=== PATIENT | male | born 1960 | race Caucasian/White ===

== ENCOUNTER → 2017-09-16 14:05 | Outpatient (CLI) | payer OTHER, SELFPAY ==
[2017-09-16 16:12] LABS: Hemoglobin A1c 6.4 % (4.2-6.3)
[2017-09-16 16:17] LABS: ALB/GLOB Ratio 1.2 RATIO (0.9-2.4); Albumin, Serum 4.1 g/dL (3.2-5.0); BUN 13 mg/dL (7-18); Calcium,Total 8.3 mg/dL (8.5-10.1); Creatinine, Serum 0.65 mg/dL (0.70-1.30); EST Glomerular Filtration Rate 136 mL/min (>60); Est Glom Filt Rate - Afr Amer 164 mL/min (>60); Globulin 3.3 g/dL (2.2-4.2); Glucose 106 mg/dL (70-110); Protein, Total 7.4 g/dL (6.4-8.2)
[2017-09-16 16:18] LABS: AST(SGOT) 19 U/L (15-37); Alanine Aminotransfer ALT/SGPT 41 U/L (16-61); Alkaline Phosphatase 102 U/L (45-117); Anion Gap 8 (5-15); Chloride 101 mmol/L (98-107); Cholesterol 129 mg/dL (200); High Density Lipoprotein 36 mg/dL; Sodium Level 137 mmol/L (136-145); Thyroid Stim Hormone (TSH) 0.88 uIU/mL (0.358-3.74); Triglycerides 123 mg/dL; Very Low Density Lipoprotein 25 mg/dL (5-40)
[2017-09-16 16:22] LABS: Microalbumin,Random Urine 5.5 mg/L (NO RANGE EST.); Microalbumin:Creatinine Ratio 7.4 mg/g CRE (<30 mg/g CRE)
== END ==
PROVIDERS: Visit Provider Family Medicine
DX: E11.9 Type 2 diabetes mellitus without complications (principal); E78.5 Hyperlipidemia, unspecified
CPT/HCPCS: 36415; 80053; 80061; 82043; 82570; 83036; 84443

== ENCOUNTER → 2020-03-16 10:18 | Outpatient (CLI) | payer OTHER, SELFPAY ==
[2020-03-16 10:42] LABS: Absolute Lymphocyte Count 1.57 X10^3/uL (0.83-4.51); Absolute Neutrophil Count 4.9 X10^3/uL (2.0-7.7); Basophil# 0.07 X10^3/uL; Eosinophil# 0.12 X10^3/uL; Eosinophils% 1.7 % (0-5); Hematocrit 48.1 % (40-54); Hemoglobin 16.3 g/dL (13.0-16.5); Lymphocyte # 1.57 X10^3/ul (4.0); Lymphocyte % 22.1 % (19-41); Mean Corp Hgb Conc 33.9 g/dL (32-36); Mean Corpuscular Hgb 29.3 pg (27.0-32.0); Mean Corpuscular Volume 86.4 fL (80-94); Monocyte# 0.42 X10^3/uL; Monocyte% 5.9 % (0-10); NRBC Flagged by Analyzer 0 % (0-5); Neutrophil # 4.88 X10^3/uL (2.7-7.7); Neutrophil % 68.9 % (47-70); Platelet Count 207 K/mm3 (150-450); RBC Distribution Width CV 13.5 % (11.6-14.6); RBC Distribution Width SD 41.9 fl (35.1-43.9); Red Blood Count 5.57 M/mm3 (4.6-6.2); White Blood Count 7.1 K/mm3 (4.4-11.0)
[2020-03-16 11:20] LABS: ALB/GLOB Ratio 1.2 RATIO (0.9-2.4); AST(SGOT) 29 U/L (15-37); Alanine Aminotransfer ALT/SGPT 52 U/L (16-61); Albumin, Serum 4.3 g/dL (3.2-5.0); Alkaline Phosphatase 98 U/L (45-117); Anion Gap 2 (5-15); BUN 15 mg/dL (7-18); BUN/Creat Ratio 19.2 RATIO (10-20); Calcium,Total 9.1 mg/dL (8.5-10.1); Chloride 107 mmol/L (98-107); Cholesterol 142 mg/dL (200); Creatinine, Serum 0.78 mg/dL (0.70-1.30); EST Glomerular Filtration Rate 108 mL/min (>60); Est Glom Filt Rate - Afr Amer 131 mL/min (>60); Globulin 3.5 g/dL (2.2-4.2); Glucose 127 mg/dL (74-106); High Density Lipoprotein 43 mg/dL; Potassium 3.9 mmol/L (3.5-5.1); Protein, Total 7.8 g/dL (6.4-8.2); Sodium Level 138 mmol/L (136-145); Triglycerides 69 mg/dL; Very Low Density Lipoprotein 14 mg/dL (5-40)
== END ==
PROVIDERS: Referring Provider Family Medicine; Visit Provider Family Medicine
DX: E11.9 Type 2 diabetes mellitus without complications (principal); M25.549 Pain in joints of unspecified hand
CPT/HCPCS: 36415; 80053; 80061; 83036; 85025

== ENCOUNTER → 2022-01-14 | Outpatient (CLI) | payer OTHER, SELFPAY ==
[2022-01-14 09:02] LABS: ALB/GLOB Ratio 1.2 RATIO (0.9-2.4); AST(SGOT) 26 U/L (15-37); Alanine Aminotransfer ALT/SGPT 56 U/L (16-61); Albumin, Serum 3.8 g/dL (3.2-5.0); Alkaline Phosphatase 107 U/L (45-117); Anion Gap 6 (5-15); BUN 15 mg/dL (7-18); Calcium,Total 8.7 mg/dL (8.5-10.1); Chloride 100 mmol/L (98-107); Cholesterol 148 mg/dL (200); Creatinine, Serum 0.79 mg/dL (0.70-1.30); EST Glomerular Filtration Rate 107 mL/min (>60); Est Glom Filt Rate - Afr Amer 129 mL/min (>60); Globulin 3.3 g/dL (2.2-4.2); Glucose 297 mg/dL (74-106); High Density Lipoprotein 42 mg/dL; Potassium 3.7 mmol/L (3.5-5.1); Protein, Total 7.1 g/dL (6.4-8.2); Sodium Level 135 mmol/L (136-145); Thyroid Stim Hormone (TSH) 0.73 uIU/mL (0.358-3.74); Triglycerides 173 mg/dL; Very Low Density Lipoprotein 35 mg/dL (5-40)
[2022-01-14 10:02] LABS: Microalbumin,Random Urine 26.4 mg/L (NO RANGE EST.); Microalbumin:Creatinine Ratio 23.6 mg/g CRE (<30 mg/g CRE)
[2022-01-14 11:08] LABS: Hemoglobin A1c 9.8 % (3.8-5.6)
[2022-01-18 08:38] LABS: Testosterone, % Free 3.85 % (1.50-4.20); Testosterone, Total 252 ng/dL (264-916)
== END | disposition home or self-care (01) ==
LOC: LAB 07:49
PROVIDERS: PCP Family Medicine; Visit Provider Family Medicine
DX: E11.9 Type 2 diabetes mellitus without complications (principal); R37 Sexual dysfunction, unspecified; I10 Essential (primary) hypertension; Z12.5 Encounter for screening for malignant neoplasm of prostate
CPT/HCPCS: 36415; 80053; 80061; 82043; 82570; 83036; 84153; 84402; 84403; 84443; G0103

== ENCOUNTER 2022-08-21 11:29 | Day surgery (SDC) | payer OTHER, SELFPAY ==
[2022-08-21 11:53] VITALS: BP 137/84; PULSE 91; RESP 16; TEMP 36.4; O2SAT 100; BMI 30.4
--- NOTE | 2022-08-21 12:02 | HP.PCM_ITS ---
History and Physical Date of Admission: 08/21/22 Date of Service:? 07/24/22 MR#: [id number] Acct: [id number] Name:? KAMRON EDWARDS Rep #: [id number] : 1960 ? ? Provider: Dr. Jonathan Duggan MD Age/Sex:? 61/M ? ? Location: [facility] Status: Signed Intake Vital Signs ? 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 Is patient in pain?: No Allergies latex Allergy (Severe, Verified 07/24/22 09:20) PT UNSURE OF REACTIONTetracyclines Allergy (Unknown, Verified 07/24/22 09:20) Other Medications albuterol 90 mcg/actuation aerosol inhaler mcg inhalation 07/24/22 [History Confirmed 07/24/22] atorvastatin 80 mg tablet tablet PO 07/24/22 [History Confirmed 07/24/22] blood sugar diagnostic (OneTouch Verio test strips) #10 ea 07/24/22 [History Confirmed 07/24/22] blood-glucose meter (OneTouch Verio Flex Meter) #1 ea 07/24/22 [History Confirmed 07/24/22] dulaglutide 0.75 mg/0.5 mL subcutaneous pen injector (Trulicity) mg subcut 07/24/22 [History Confirmed 07/24/22] glimepiride 2 mg tablet ea PO 07/24/22 [History Confirmed 07/24/22] hydrochlorothiazide 25 mg tablet tablet PO 07/24/22 [History Confirmed 07/24/22] losartan 50 mg tablet tablet PO 07/24/22 [History Confirmed 07/24/22] metformin 500 mg tablet tablet PO 07/24/22 [History Confirmed 07/24/22] multivitamin 1 tab PO DAILY 07/24/22 [History Confirmed 07/24/22] saw palmetto 500 mg capsule 500 mg PO DAILY 07/24/22 [History Confirmed 07/24/22] sitagliptin phosphate 100 mg tablet (Januvia) 100 mg PO DAILY 07/24/22 [History Confirmed 07/24/22] PFSH Medical History?(Updated 07/24/22 @ 15:[address] Jonathan Duggan MD) Arthritis Asthma Diabetes mellitus Hypertension Ingrown toenail (Unknown) Surgical History?(Updated 07/24/22 @ 09:16 by Rena Fenton) [place] teeth removed (Unknown) Family History?(Updated 07/24/22 @ 09:17 by Rena Fenton) Mother Diabetes Hypertension Cancer ?? ? LungFather Bleeding disorder ?? ? Pt states father had excessive nose bleeds with heavy bleeding Social History?(Updated 07/24/22 @ 09:17 by Rena Fenton) Smoking Status:? Never smoker alcohol intake:? never substance use type:? does not use HPI HPI HPI: ?Patient is a 61-year-old male who presents for need to schedule diagnostic colonoscopy secondary to recently positive Cologuard.? They are referred for surgical consultation from Dr. Jorden Henderson.? Patient has not had prior colonoscopy.? However, he reports 2 prior Cologuard tests returned negative.? He also relates a story of how the present test broke from the provided stand and fell onto the toilet.? This was quickly rescued on the toilet bowl and patient called Dr. Henderson's office to inquire if the test validity had been compromised.? This led to a more formal inquiry with the Cologuard company and ultimately patient was advised that the test integrity should not have been compromised and that his insurance would not cover a repeat test. Patient has a personal history of diverticulitis that was diagnosed at the age of 37.? He states this was the last time he required medical attention for this diagnosis, but has since noticed twinges of discomfort in the left lower quadrant. They describe their bowel habits as normal with occasional diarrhea felt to be related to medications.? They have approximately 2 per day and spend roughly 5-10 minutes on the toilet without significant straining.? They have not noticed recent bleeding or dark stools.? They do not regularly take fiber supplements.? They do, however, consume significant fiber in their regular diet.? There is no history of hemorrhoids. Patient has a family history of diverticulitis and his mother.? He states she attempted to go through colonoscopy, but this was not possible secondary to what sounds like a stricture in the disease segment of her colon.? ? The patient's weight is stable. The patient is not prescribed anticoagulants/blood thinners. Relevant prior abdominal surgical history includes: Unremarkable Patient does have a significant history of heartburn and states that he takes a generic version of Prilosec for this issue with good relief of symptoms.? He estimates that it has been a couple of months ago since his last symptoms.? He confesses that he likes hot sauce and this seems to provoke the symptoms. Mr. Zaragoza is also referred for evaluation of an umbilical hernia.? He reports that he was just diagnosed with this issue this year by Dr. Henderson and then independently with his [employer] physical.? He denies any discomfort from this finding.? He denies any inciting event but does admit to frequent, heavy lifting (he estimates 50 to 90 pounds) with his job. ROS General General: No weight change, appetite, fatigue, colon cancer, breast cancer or weakness HEENT HEENT: No difficulty swallowing, eye injury, eye surgery, swollen glands or hoarseness Endo Endocrine: Yes diabetes mellitus; No thyroid disease, thyroid cancer, Hair loss, heat intolerance or cold intolerance Skin Skin: No rash or changing moles Breast Breast: No left breast lump, right breast lump, nipple discharge, breast pain, abnormal mammogram, abnormal US or breast enlargement Musc Musculoskeletal: Yes arthritis; No back problems, rheumatoid arthritis, gout or joint pain Cardio Cardiovascular: Yes high blood pressure; No murmur, pacemaker, heart disease, atrial fibrillation, heart attack, heart stent, palpitations, shortness of breat with exertion or chest pain Psych Psychiatric: No depression, anxiety or hearing voices Resp Respiratory: No shortness of breath, No sleep apnea, No cough, No COPD, Yes asthma, No emphysema and No wheezing Gastro Gastrointestinal: No abdominal pain, No nausea or vomiting, No diarrhea, No constipation, No blood in stool, No acid reflux, No hemorrhoids, No ulcers, No gallbladder problem and No black,tarry stools Kaushik Hematologic: No blood thinners, No blood disorders, No bleeding, No anemia and No blood clots Neuro Neurologic: No system reviewed and no additional complaints, except as documented, No as per HPI, No abnormal gait, No abnormal hearing, No abnormal movements, No abnormal speech, No behavioral changes, No burning sensations, No confusion, No convulsions, No disequilibrium, No dizziness, No localized weakness, No frequent falls, No headache(s), No lack of coordination, No loss of vision, No memory loss, No numbness, No other visual disturbances, No radicular pain, No restless legs, No sensory deficit, No syncope, No tingling, No tremor(s), No weakness and No other Exam Const General: cooperative, comfortable and no acute distress Orientation: alert, awake and oriented x3 Resp Effort & Inspection: normal respiratory effort Auscultation: no rales, no rhonchi and no wheezes Cardio Rate: regular rate Rhythm: regular rhythm Heart Sounds: S1 normal and S2 normal GI Inspection: non-distended, no scars and visible herniation (Umbilical) Palpation: hernia umbilical (Mildly uncomfortable to palpation.? Contains reducible fat.? Fascial defect estimated at 1 cm) Other: Diastasis present when patient is asked to sit forward Assessment and Plan Assessment and Plan (1) Positive colorectal cancer screening using Cologuard test: ?Status:?Acute ?Comment: Is a 61-year-old gentleman, with past medical history significant for diabetes, who presents for recently positive Cologuard test after a series of negative screenings.? He has a remote history of diverticulitis, but otherwise appears to be of average risk for colon cancer.? He denies any concerning features to his bowel movements.? We held a detailed discussion regarding the recommendation for colonoscopy at this juncture given his positive Cologuard and that colonoscopy remains the gold standard for colon cancer screening.? Patient expresses understanding of this information and accepts the recommendation to proceed with colonoscopy.? We also discussed the preprocedure prep and need for possible transportation the day of the procedure. ?Plan: Plan will be to complete diagnostic colonoscopy on first mutually agreeable date under local MAC.? Pre-procedure prep discussed and paper instructions provided.? Patient is also made aware that he will need to have a combine driver with him the day of the procedure. (2) Umbilical hernia without obstruction and without gangrene: ?Status:?Acute ?Comment: Patient with incidental, small umbilical hernia.? Hernia contains reducible fat.? I have recommended consideration of repair.? Given patient's very active lifestyle, I have recommended he consider mesh placement as well.? Is patient's preference, given his asymptomatic status, to get through his colonoscopy as discussed above before we can consider further management of this issue.? I will therefore defer to his timing. ?Plan: Continue watchful waiting with umbilical hernia until patient makes further decision regarding repair I have examined the patient the following changes are noted: Patient confirms that he completed his bowel prep successfully and that his output is now a clear yellow. However, he comments that shortly after our consultation visit he noted 3 days of black stools. He states that they went on to resume their normal character spontaneously. When asked about any recent iron or bismuth use, he confesses that he routinely uses Pepto-Bismol for any nausea side effects of his other medications so this is entirely possible. I reviewed with him the expectations for today's procedure and for any pathology lag time. I also suggested to him that on the account of his reports of black stools if he were to have a recurrence we may need to consider return to the endoscopy suite for diagnostic EGD as most common cause of melena is an upper GI source. Patient expresses an understanding of this information and denies any recent upper GI symptoms. With this review and understanding intact, we will plan to proceed to the endoscopy suite for diagnostic colonoscopy as planned given indication of recent positive Cologuard testing.
[2022-08-21] MEDS: Lactated Ringers 1,000 ML 15 ML IV (12:07)
[2022-08-21 12:30] LABS: Bedside Glucose 160 mg/dL (74-106)
--- NOTE | 2022-08-21 12:30 | COLBX_PTH ---
PATIENT: KAMRON EDWARDS LOC: EN U#:[id number] AGE/SX: 62/M ROOM: RE08/21/[address]: Dr. Jonathan Duggan MD : 1960 BED: DIS: 08/21/2022 SPEC #: [id number] RECD: 08/21/22 13:11 STATUS: YANCI CHRIS #: [id number] LIZBETH: 08/21/22 12:[address]: Jonathan Duggan DEPT: SURGICAL PATHOLOGY RECD BY: Opal Hu ENTERED: 08/24/22 10:28 SP TYPE: COLON BX OTHR DR: Dr. Jorden Henderson MD Tissues: Sigmoid colon biopsy Procedures: Surgery Specimen Level IV HEADER OPERATION: Colonoscopy (MAC) with biopsies PRE-OP DIAGNOSIS: Positive colorectal cancer screening using Cologuard test TISSUE SUBMITTED: Sigmoid biopsy 65 cm MICROSCOPIC DIAGNOSIS Sigmoid colon at 65 cm, biopsy: No pathologic change. AM:darío 08/25/2022 MICROSCOPIC DESCRIPTION Slides are reviewed. GROSS DESCRIPTION Received in fixative is one container labeled with the patient's name and designated sigmoid biopsy 65 cm. The specimen consists of multiple irregular fragments of light diggs soft tissue that in aggregate measure 1 x 0.3 x 0.1 cm. The specimen is totally submitted in one cassette. / SJ:darío 08/24/2022 TC:5 CPT: 42578
[2022-08-21 13:05] VITALS: BP 137/84; BP 92/64; PULSE 67; RESP 18; TEMP 36.2; O2SAT 96
[2022-08-21 13:07] VITALS: BP 137/84; BP 92/63; PULSE 68; RESP 18; O2SAT 95
[2022-08-21 13:10] VITALS: BP 100/56; BP 137/84; PULSE 70; RESP 18; O2SAT 93
--- NOTE | 2022-08-21 13:11 | OP.CCLET_ITS ---
08/21/2022 Jorden Henderson [address] [place] [address] Re : Colonoscopy procedure for Antoine Ingram Dear Dr. Henderson This procedure was performed on Sunday, August 21, 2022. My impressions and recommendations are as follows: Impressions : - Tortuous colon. - Diverticulosis in the sigmoid colon, in the proximal sigmoid colon, in the mid sigmoid colon, in the mid transverse colon, in the distal transverse colon, from transverse colon to sigmoid colon and from 40 to 80 cm proximal to the anus. Biopsied. - The examination was otherwise normal on direct and retroflexion views. Recommendations : - Discharge patient to home (via wheelchair). - High fiber diet today. - Use original regular Metamucil one tablespoon PO daily today. - Await pathology results. - Repeat colonoscopy in 5-10 years for screening purposes. - Telephone my office for pathology results in 1 week. - Continue present medications. My findings are described in the full procedure note, which is enclosed. If I can be of further assistance, please feel free to contact me at Doctor phone number(s): , Work: . Sincerely, Jonathan Duggan MD 08/21/2022 1:10:50 PM This report has been signed electronically.
--- NOTE | 2022-08-21 13:11 | OP.COLON_ITS ---
Patient Name: Antoine Ingram Procedure Date: 08/21/2022 12:08 PM Date of : 1960 Age: 62 Procedure: Colonoscopy Indications: Positive Cologuard test Providers: Jonathan Duggan MD Medicines: See the Anesthesia note for documentation of the administered medications Patient Profile: Refer to note in patient chart for documentation of history and physical. Last Colonoscopy: none. The patient's first colonoscopy is today. Complications: No immediate complications. Estimated blood loss: Minimal. Procedure: Pre-Anesthesia Assessment: - The heart rate, respiratory rate, oxygen saturations, blood pressure, adequacy of pulmonary ventilation, and response to care were monitored throughout the procedure. After I obtained informed consent, the scope was passed under direct vision. Throughout the procedure, the patient's blood pressure, pulse, and oxygen saturations were monitored continuously. The pediatric colonoscope was introduced through the anus and advanced to the cecum, identified by the appendiceal orifice, IC valve and transillumination. The ileocecal valve, the appendiceal orifice and the rectum were photographed. The colonoscopy was somewhat difficult due to a tortuous colon. Successful completion of the procedure was aided by withdrawing and reinserting the scope. The patient tolerated the procedure well. The quality of the bowel preparation was adequate to identify polyps 6 mm and larger in size. Scope In: 12:21:29 PM Scope Withdrawal Time 0 hours 26 minutes 11 seconds Scope Out: 12:57:32 PM Total Procedure Duration Time 0 hours 36 minutes 3 seconds Findings: The perianal and digital rectal examinations were normal. Pertinent negatives include normal sphincter tone and no palpable rectal lesions. The sigmoid colon was moderately tortuous. Advancing the scope required using scope torsion. Many small and large-mouthed diverticula were found in the sigmoid colon, proximal sigmoid colon, mid sigmoid colon, mid transverse colon, distal transverse colon, from transverse colon to sigmoid colon and from 40 to 80 cm proximal to the anus. Biopsies were taken with a cold forceps for histology. Estimated blood loss was minimal. The exam was otherwise without abnormality on direct and retroflexion views. Impression: - Tortuous colon. - Diverticulosis in the sigmoid colon, in the proximal sigmoid colon, in the mid sigmoid colon, in the mid transverse colon, in the distal transverse colon, from transverse colon to sigmoid colon and from 40 to 80 cm proximal to the anus. Biopsied. - The examination was otherwise normal on direct and retroflexion views. Recommendation: - Discharge patient to home (via wheelchair). - High fiber diet today. - Use original regular Metamucil one tablespoon PO daily today. - Await pathology results. - Repeat colonoscopy in 5-10 years for screening purposes. - Telephone my office for pathology results in 1 week. - Continue present medications. Procedure Code(s): --- Professional --- 46376, Colonoscopy, flexible; with biopsy, single or multiple Diagnosis Code(s): --- Professional --- R19.5, Other fecal abnormalities K57.30, Diverticulosis of large intestine without perforation or abscess without bleeding Q43.8, Other specified congenital malformations of intestine CPT copyright 2017 [employer]. All rights reserved. The codes documented in this report are preliminary and upon information assurance specialist review may be revised to meet current compliance requirements. Jonathan Duggan MD 08/21/2022 1:10:50 PM This report has been signed electronically. Number of Addenda: 0 Note Initiated On: 08/21/2022 12:08 PM
[2022-08-21 13:15] VITALS: BP 100/59; BP 137/84; PULSE 69; RESP 18; TEMP 36.4; O2SAT 93
[2022-08-21 13:39] VITALS: BP 137/84
== END 2022-08-21 13:41 | disposition home or self-care (01) ==
LOC: EN 11:31 → AC 11:33
PROVIDERS: PCP Family Medicine; Referring Provider Family Medicine; Visit Provider Surgery
PROC: 0DJD8ZZ Inspection of Lower Intestinal Tract, Via Natural or Artificial Opening Endoscopic (ICD-10-PCS; CPT 45378; principal; 2022-08-21 12:25)
DX: Z12.11 Encounter for screening for malignant neoplasm of colon (principal); E11.9 Type 2 diabetes mellitus without complications; K42.9 Umbilical hernia without obstruction or gangrene; K57.30 Diverticulosis of large intestine without perforation or abscess without bleeding; Z79.84 Long term (current) use of oral hypoglycemic drugs; R19.7 Diarrhea, unspecified; R19.5 Other fecal abnormalities; I10 Essential (primary) hypertension
CPT/HCPCS: 45380; 82962; 88305; J7120; J2405

== ENCOUNTER → 2022-10-23 | Outpatient (CLI) | payer OTHER, SELFPAY ==
[2022-10-23 17:51] LABS: Absolute Lymphocyte Count 1.97 X10^3/uL (0.83-4.51); Absolute Neutrophil Count 5.2 X10^3/uL (2.0-7.7); Basophil# 0.07 X10^3/uL; Basophil% 0.9 % (0-1); Eosinophil# 0.27 X10^3/uL; Eosinophils% 3.4 % (0-5); Hematocrit 41.5 % (40-54); Hemoglobin 14.2 g/dL (13.0-16.5); Lymphocyte # 1.97 X10^3/ul (0.83-4.51); Lymphocyte % 24.5 % (19-41); Mean Corp Hgb Conc 34.2 g/dL (32-36); Mean Corpuscular Hgb 30.1 pg (27.0-32.0); Mean Corpuscular Volume 88.1 fL (80-94); Mean Platelet Vol. 10.4 fl (6.2-12.0); Monocyte# 0.45 X10^3/uL; Monocyte% 5.6 % (0-10); NRBC Flagged by Analyzer 0 % (0-5); Neutrophil # 5.24 X10^3/uL (2.7-7.7); Platelet Count 207 K/mm3 (150-450); RBC Distribution Width CV 13.3 % (11.6-14.6); RBC Distribution Width SD 42.7 fl (35.1-43.9); Red Blood Count 4.71 M/mm3 (4.6-6.2); White Blood Count 8.1 K/mm3 (4.4-11.0)
[2022-10-23 18:16] LABS: ALB/GLOB Ratio 1.4 RATIO (0.9-2.4); AST(SGOT) 24 U/L (15-37); Alanine Aminotransfer ALT/SGPT 48 U/L (16-61); Albumin, Serum 4.4 g/dL (3.2-5.0); Alkaline Phosphatase 83 U/L (45-117); Anion Gap 7 (5-15); BUN 18 mg/dL (7-18); BUN/Creat Ratio 26.5 RATIO (10-20); Calcium,Total 8.9 mg/dL (8.5-10.1); Chloride 102 mmol/L (98-107); Creatinine, Serum 0.68 mg/dL (0.70-1.30); EST Glomerular Filtration Rate 127 mL/min (>60); Est Glom Filt Rate - Afr Amer 153 mL/min (>60); Globulin 3.1 g/dL (2.2-4.2); Glucose 91 mg/dL (74-106); Potassium 3.3 mmol/L (3.5-5.1); Protein, Total 7.5 g/dL (6.4-8.2); Sodium Level 137 mmol/L (136-145)
== END | disposition home or self-care (01) ==
LOC: MFPLAB 16:20
PROVIDERS: PCP Family Medicine; Referring Provider Family Medicine; Visit Provider Family Medicine
DX: E11.9 Type 2 diabetes mellitus without complications (principal)
CPT/HCPCS: 36415; 80053; 85025

== ENCOUNTER 2022-11-09 10:52 | Day surgery (SDC) | payer OTHER, SELFPAY ==
[2022-10-26 15:59] LABS: Hematocrit 43.1 % (40-54); Hemoglobin 14.4 g/dL (13.0-16.5); Mean Corp Hgb Conc 33.4 g/dL (32-36); Mean Corpuscular Hgb 29.6 pg (27.0-32.0); Mean Corpuscular Volume 88.7 fL (80-94); Platelet Count 217 K/mm3 (150-450); RBC Distribution Width CV 13.4 % (11.6-14.6); RBC Distribution Width SD 43.3 fl (35.1-43.9); Red Blood Count 4.86 M/mm3 (4.6-6.2); White Blood Count 7.9 K/mm3 (4.4-11.0)
[2022-11-05 08:35] LABS: Potassium 4.2 mmol/L (3.5-5.1)
[2022-11-09] VITALS (7 sets, daily range): BP systolic 103–148; BP diastolic 67–86; PULSE 79–89; RESP 16; TEMP 36.4–36.6; O2SAT 94–99; BMI 32.3
[2022-11-09] MEDS: Lactated Ringers 1,000 ML 15 ML IV (11:48)
--- NOTE | 2022-11-09 11:53 | PCM.HP.BLA ---
History and Physical Date of Admission: 11/09/22 Date of Service:? 10/19/22 MR#: [id number] Acct: [id number] Name:? KAMRON EDWARSD Rep #: [id number] : 1960 ? ? Provider: Dr. Jonathan Duggan MD Age/Sex:? 62/M ? ? Location: [facility] Status: Signed Intake Vital Signs ? 08/21/2310:53 10/19/2309:16 Height 5 ft 8.5 in 5 ft 8 in Weight: ? 209 lb BMI ? 31.7 BP ? 118/78 Blood Pressure Location ? Rt brachial Position ? Sitting Respiration ? 17 Pulse ? 80 Pulse Source ? Monitor Temp ? 97.4 F L Temp Source ? Temporal Pulse Oximetry (%) ? 98 Oxygen Delivery Method ? room air Intake Visit Reasons:?UPDATE H & P Chief Complaint: update h&p Is patient in pain?: No Allergies latex Allergy (Severe, Verified 10/19/22 10:21) PT UNSURE OF REACTIONTetracyclines Allergy (Unknown, Verified 10/19/22 10:21) Other Medications albuterol 90 mcg/actuation aerosol inhaler 90 mcg inhalation PRN PRN ASTHMA 07/24/22 [History Confirmed 10/19/22] atorvastatin 80 mg tablet 80 mg PO QHS 07/24/22 [History Confirmed 10/19/22] blood sugar diagnostic ([employer]Touch Verio test strips) #10 ea 07/24/22 [History Confirmed 10/19/22] blood-glucose meter (OneTouch Verio Flex Meter) #1 ea 07/24/22 [History Confirmed 10/19/22] dulaglutide 0.75 mg/0.5 mL subcutaneous pen injector (Trulicity) 0.75 mg subcut FR 07/24/22 [History Confirmed 10/19/22] glimepiride 2 mg tablet 2 mg PO DAILY 07/24/22 [History Confirmed 10/19/22] hydrochlorothiazide 25 mg tablet 25 mg PO DAILY 07/24/22 [History Confirmed 10/19/22] losartan 50 mg tablet 50 mg PO DAILY 07/24/22 [History Confirmed 10/19/22] metformin 500 mg tablet 500 mg PO BID 07/24/22 [History Confirmed 10/19/22] multivitamin 1 tab PO DAILY 07/24/22 [History Confirmed 10/19/22] saw palmetto 500 mg capsule 500 mg PO DAILY 07/24/22 [History Confirmed 10/19/22] sitagliptin phosphate 100 mg tablet (Januvia) 100 mg PO DAILY 07/24/22 [History Confirmed 10/19/22] PFSH Medical History? Alcohol use Arthritis Arthritis Asthma Asthma Diabetes Diabetes mellitus Dietary restriction Gastric reflux High cholesterol History of diverticulitis History of IBS Hypertension Hypertension Ingrown toenail (Unknown) Leg cramps Loss of hearing Non-smoker Wears glasses Surgical History? [place] teeth removed (Unknown) Family History?(Updated 07/24/22 @ 09:17 by Rena Fenton) Mother Diabetes Hypertension Cancer ?? ? LungFather Bleeding disorder ?? ? Pt states father had excessive nose bleeds with heavy bleeding Social History? Smoking Status:? Never smoker alcohol intake:? never substance use type:? does not use HPI HPI HPI: Patient is 62-year-old male who presents for update H&P and discussion on possible umbilical hernia repair.? He is known to me for history of diagnostic colonoscopy after a positive Cologuard testing.? His scope was completed 08/21/2022.? His last consultation visit was 07/21/2023.? He reports overall very little change in his umbilical hernia complaints.? He states that occasionally it feels like a fork is in there (motioning to his umbilicus).? He has not appreciated any significant growth.? He reports that there are at least 3 other employees at his workplace that have had hernias.? All are beginning to have there is addressed after a bad experience with one of their colleagues.? He questions what the appropriate recovery time should be and notes that he still does not heal quite normally as he cut his foot 1.5 months ago and still has not seen complete resolution.? Favorably he notes that his blood sugars have been under better control?with an average in the 140s and his last A1c reported at 6.4. Below is recapitulated for ease of review: HPI: ?Patient is a 61-year-old male who presents for need to schedule diagnostic colonoscopy secondary to recently positive Cologuard.? They are referred for surgical consultation from Dr. Jorden Henderson.? Patient has not had prior colonoscopy.? However, he reports 2 prior Cologuard tests returned negative.? He also relates a story of how the present test broke from the provided stand and fell onto the toilet.? This was quickly rescued on the toilet bowl and patient called Dr. Henderson's office to inquire if the test validity had been compromised.? This led to a more formal inquiry with the [employer] company and ultimately patient was advised that the test integrity should not have been compromised and that his insurance would not cover a repeat test. Patient has a personal history of diverticulitis that was diagnosed at the age of 37.? He states this was the last time he required medical attention for this diagnosis, but has since noticed twinges of discomfort in the left lower quadrant. They describe their bowel habits as normal with occasional diarrhea felt to be related to medications.? They have approximately 2 per day and spend roughly 5-10 minutes on the toilet without significant straining.? They have not noticed recent bleeding or dark stools.? They do not regularly take fiber supplements.? They do, however, consume significant fiber in their regular diet.? There is no history of hemorrhoids. Patient has a family history of diverticulitis and his mother.? He states she attempted to go through colonoscopy, but this was not possible secondary to what sounds like a stricture in the disease segment of her colon.? ? The patient's weight is stable. The patient is not prescribed anticoagulants/blood thinners. Relevant prior abdominal surgical history includes: Unremarkable Patient does have a significant history of heartburn and states that he takes a generic version of Prilosec for this issue with good relief of symptoms.? He estimates that it has been a couple of months ago since his last symptoms.? He confesses that he likes hot sauce and this seems to provoke the symptoms. Mr. Zaragoza is also referred for evaluation of an umbilical hernia.? He reports that he was just diagnosed with this issue this year by Dr. Henderson and then independently with his [employer] physical.? He denies any discomfort from this finding.? He denies any inciting event but does admit to frequent, heavy lifting (he estimates 50 to 90 pounds) with his job. ROS General General: No weight change, appetite, fatigue, colon cancer, breast cancer or weakness HEENT HEENT: No difficulty swallowing, eye injury, eye surgery, swollen glands or hoarseness Endo Endocrine: Yes diabetes mellitus; No thyroid disease, thyroid cancer, Hair loss, heat intolerance or cold intolerance Skin Skin: No rash or changing moles Breast Breast: No left breast lump, right breast lump, nipple discharge, breast pain, abnormal mammogram, abnormal US or breast enlargement Musc Musculoskeletal: Yes arthritis; No back problems, rheumatoid arthritis, gout or joint pain Cardio Cardiovascular: Yes high blood pressure; No murmur, pacemaker, heart disease, atrial fibrillation, heart attack, heart stent, palpitations, shortness of breat with exertion or chest pain Psych Psychiatric: No depression, anxiety or hearing voices Resp Respiratory: No shortness of breath, No sleep apnea, No cough, No COPD, Yes asthma, No emphysema and No wheezing Gastro Gastrointestinal: No abdominal pain, No nausea or vomiting, No diarrhea, No constipation, No blood in stool, No acid reflux, No hemorrhoids, No ulcers, No gallbladder problem and No black,tarry stools [place] Hematologic: No blood thinners, No blood disorders, No bleeding, No anemia and No blood clots Neuro Neurologic: No system reviewed and no additional complaints, except as documented, No as per HPI, No abnormal gait, No abnormal hearing, No abnormal movements, No abnormal speech, No behavioral changes, No burning sensations, No confusion, No convulsions, No disequilibrium, No dizziness, No localized weakness, No frequent falls, No headache(s), No lack of coordination, No loss of vision, No memory loss, No numbness, No other visual disturbances, No radicular pain, No restless legs, No sensory deficit, No syncope, No tingling, No tremor(s), No weakness and No other Exam Const General: cooperative, comfortable and no acute distress Orientation: alert, awake and oriented x3 Resp Effort & Inspection: normal respiratory effort GI Other: No scars, nondistended, visible umbilical hernia that is reducible, but tender with palpation.? Fascial defect estimated just over 1 cm in diameter. Assessment and Plan Assessment and Plan (1) Umbilical hernia without obstruction and without gangrene: ?Status:?Acute ?Comment: Patient with incidental, small umbilical hernia that remains reducible.? Patient now requests elective repair.? We have discussed options to include open primary, open with mesh, or minimally invasive with mesh (either laparoscopic or robotic).? Patient states that he simply wishes for the most durable repair as he lifts heavy stuff every day.? He also reports that he has talked with his employer and has been granted 6 weeks leave once his hernia repair is complete.? Given this direction and patient's ability to take off work, I have recommended that we proceed with a minimally invasive repair to hopefully afford greater mesh overlap in addition to primary repair of the defect.? At this time, patient appears medically stable for surgery and I am encouraged by his improvements of his glycemic control.? He is due for a physical and promises to forward these results once they are completed. ?Plan: ? Laparoscopic versus robotic assisted umbilical hernia repair with mesh on 10/29/2022 ? Patient to have preop MRSA PCR ? Patient to relay the results of his upcoming physical I have examined the patient the following changes are noted: Patient confirms that he completed his mupirocin ointment and Hibiclens regimen as prescribed. He also states that he has had some discomfort from his umbilical hernia, but otherwise denies any interval health changes. He confirms that he is prepared to accept the postoperative lifting restrictions. Other post operative expectations were discussed with both patient and his spouse. They offer no further questions. Therefore we will proceed to the operating room for robot-assisted umbilical hernia repair with mesh as discussed above.
[2022-11-09 12:21] LABS: Bedside Glucose 154 mg/dL (74-106)
[2022-11-09] MEDS: Cefazolin 2 GM in 0.9% Normal Saline 100 ML IV (12:30)
[2022-11-09] MEDS: BUPIVACAINE LIPOSOME/PF 20 ML VIAL OPERA.SITE (12:54)
[2022-11-09] MEDS: 0.9% Normal Saline (Pres. free 10 ML Vial (12:54)
[2022-11-09] MEDS: Bupivacaine 0.25% 30 ML Vial ×2 (12:54)
--- NOTE | 2022-11-09 15:28 | PCM.OPRPT ---
Report of Operation Date of Procedure: 11/09/22 Pre-Operative Diagnosis: Umbilical hernia Post-Operative Diagnosis: Chronically fat?incarcerated umbilical hernia Surgery/Procedure Performed:: Robot-assisted transabdominal preperitoneal repair of umbilical hernia with ProGrip mesh Description of Surgical Findings:: ? 1 cm fascial defect ? Inferior diastases ? Otherwise grossly normal-appearing peritoneal anatomy Surgeon: Jonathan Duggan storage garage manager: Lavern Navarro storage garage manager: Charleen Rodgers Type of Anesthesia: General/Supplemental Anesthesiologist: Colton Ardon Special Medications: 20 mL Exparel, 20 mL injectable saline, 60 mL 0.25% bupivacaine Specimen's removed: N/A Drains: N/A Estimated Blood Loss (mL): 25 Description of Procedure: After appropriate identification in the preoperative holding area, the patient was brought to the operating room suite where he was positioned supine the operating table. Preoperative antibiotics were administered. Patient was then induced with a general anesthetic. Patient's abdomen was prepped and draped in the usual sterile fashion. A formal timeout followed to confirm patient and procedure. Procedure was begun with a Veress entry at Hernandez's point. Once the set point of pressure of 12mmHg was reached, this Veress needle was exchanged for an optical trocar and an optical entry was made in this location. Laparoscopic investigation revealed no inadvertent injury to the viscera below. 2 additional 8 mm robotic trochars were placed along the abdominal wall laterally taking care to avoid the bony prominences of the costal margin and the ASIS. A transversus abdominis plane block was created with 80 mL of the Exparel/saline/bupivacaine mixture under laparoscopic vision as these ports were placed. The robot was then brought in and docked in standard fashion. Robotically a peritoneal flap was raised approximately 2 cm medial from my trochars and carried this away towards the contralateral abdominal wall. Great care was taken to lower the peritoneum off of the posterior rectus sheath and avoid any rents in the peritoneal flap, but still there was a small rent in the upper left side of the flap which required repair later in the case. Perforating vessels were sealed with bipolar energy to maintain hemostasis as this flap dissection proceeded. I then addressed the hernia directly by opening the scar tissue about the hernia sac and carefully applying manual traction downward until the hernia was fully reduced. The flap was then further dissected laterally until it appeared we had adequate width. A ruler was introduced into the peritoneum and our hernia measured approximately 1 cm in greatest dimension. Additionally, I confirmed that we had at least 4 cm of overlap laterally. Lastly as I investigated the inferior aspect of our dissection I identified some diastases (the abdominal fascia did appear intact) so I sought to cut the mesh for our repair long enough to cover this area as well. The hernia defect was closed with a #1 stratafix suture by running the fascial defect closed and then running the suture back upon itself. Then our 8 x 12 cm (cut down from 10 x 15 cm original dimensions) ProGrip mesh was introduced into the peritoneum. The midpoint of the mesh was centered on the hernia closure and was unfolded while pressing out against the abdominal wall to anchor the mesh barbs in the posterior rectus sheath. Once I was satisfied with the mesh placement a 3-0 V-Loc suture was used to close the proximal peritoneal rent. I attempted to close the small peritoneal defect in the upper aspect of the mesh, however, the peritoneum was too attenuated and resulted in tearing. Therefore this was promptly abandon and I elected to harvest a pedicled falciform flap using a combination of bipolar and monopolar energy to maintain hemostasis. This flap?estimated at 1.5 cm in thickness?was swung over to the peritoneal rent and a 3-0 Vicryl suture was then used to loosely tacked the flap against the edges of the peritoneal defect circumferentially. All our needles and ruler were removed from the peritoneum under direct visualization and our case counts were confirmed as correct. The robot was then undocked and the trocars were removed. Additional local anesthetic was instilled and the port sites were closed with interrupted 4-0 Monocryl in subcuticular fashion. Steri-Strips and OpSite dressings were applied. Patient was transferred to PACU for ongoing care. Grafts/Implants Used: [employer] Progrip reference [id number], LOT PWI [id number], use by 04/15/25 Complications None Admit VTE Documentation VTE Mechan Device Prophylaxis: SCD's
--- NOTE | 2022-11-09 15:42 | DCINST_ITS ---
Discharge Instructions Diet Discharge Diet: No restrictions Activity Discharge Activity: May Not Drive (While taking narcotic pain medication) and May Shower May shower in (days): 2 Ice area for (Minutes): 20 Lifting Restrictions: No lifting greater than 10 pounds for the next 5 weeks Dressing / Incision Call your doctor if your incision/area has: Continuous Slow Oozing, Increased Pain/ Swelling, Increased Redness, Foul Smelling Discharge and Swelling at the incision site Call your doctor if you observe: Fever of 101 or Higher Change Dressing in: 2 days (Please leave Steri-Strips intact until they fall off spontaneously or are taken off at your follow-up visit) Cleanse incision/area with: Soap & Water and Keep Dressing Clean & Dry Follow Up Care Please Follow Up With: Jonathan Duggan MD When: 1 week postop Test Results: Test results from this visit will be discussed in further detail at your follow- up appointment, if applicable. Discharge Plan Admission Primary Reason for Your Visit: Umbilical hernia repair Attending Provider: Jonathan Duggan Primary Care Provider: Jorden Henderson Discharge Orders/Prescriptions Prescriptions: New oxycodone 5 mg tablet 5 mg PO Q6H PRN (Reason: pain) 3 Days Qty: 14 0RF Continued Trulicity 0.75 mg/0.5 mL pen injector 0.75 mg subcut FR hydrochlorothiazide 25 mg tablet 25 mg PO DAILY glimepiride 2 mg tablet 2 mg PO DAILY Label Comments: TAKE 1 TABLET BY MOUTH ONCE DAILY FOR 90 DAYS atorvastatin 80 mg tablet 80 mg PO QHS losartan 50 mg tablet 50 mg PO DAILY (DME) OneTouch Verio test strips Strip See Rx Instructions .ROUTE .MEDSUPPLY Qty: 10 Rx Instructions: As directed (DME) blood-glucose meter [OneTouch Verio Flex meter] [facility] [place], [place] See Rx Instructions .ROUTE .MEDSUPPLY Qty: 1 Rx Instructions: As directed metformin 500 mg tablet 500 mg PO BID Januvia 100 mg tablet 100 mg PO DAILY multivitamin Tablet 1 tab PO DAILY saw palmetto 500 mg capsule 500 mg PO DAILY Rx Instructions: give with food (meal/snack) albuterol 90 mcg/actuation aerosol 90 mcg inhalation PRN PRN (Reason: ASTHMA) mupirocin 2 % ointment 1 applic topical BID Qty: 15 0RF Rx Instructions: apply to q-tip and insert into bilateral nares twice daily for 1 week chlorhexidine gluconate [Hibiclens] 4 % liquid 1 applic topical ONCE Qty: 237 0RF Rx Instructions: wash body in shower once daily x 1 week Referrals / Follow Up: Jorden Henderson MD [Primary Care Provider] - Disposition Disposition (needs filled in before D/C Order can be placed): Home, Self Care
[2022-11-09 16:31] LABS: Bedside Glucose 166 mg/dL (74-106)
== END 2022-11-09 18:30 | disposition home or self-care (01) ==
LOC: SDC 10:53 → AC 10:55
PROVIDERS: Anesthesiology; PCP Family Medicine; Referring Provider Surgery; Visit Provider Surgery
PROC: (CPT 49594; principal; 2022-11-09 12:15)
DX: K42.9 Umbilical hernia without obstruction or gangrene (principal); E11.9 Type 2 diabetes mellitus without complications; I10 Essential (primary) hypertension; J45.909 Unspecified asthma, uncomplicated; Z87.19 Personal history of other diseases of the digestive system
CPT/HCPCS: 49594; S2900; 00830; 36415; 82962; 83036; 84132; 85027; 87077; 87081; J7120; J2405; J3490

== ENCOUNTER → 2023-05-19 | Outpatient (CLI) | payer OTHER, SELFPAY ==
[2023-05-19 15:10] LABS: Absolute Lymphocyte Count 1.88 X10^3/uL (0.83-4.51); Absolute Neutrophil Count 5.7 X10^3/uL (2.0-7.7); Basophil# 0.09 X10^3/uL; Basophil% 1.1 % (0-1); Eosinophil# 0.11 X10^3/uL; Eosinophils% 1.3 % (0-5); Hematocrit 43.2 % (40-54); Hemoglobin 14.7 g/dL (13.0-16.5); Lymphocyte # 1.88 X10^3/ul (0.83-4.51); Lymphocyte % 22.6 % (19-41); Mean Corpuscular Hgb 29.4 pg (27.0-32.0); Mean Corpuscular Volume 86.4 fL (80-94); Mean Platelet Vol. 10.4 fl (6.2-12.0); Monocyte# 0.51 X10^3/uL; Monocyte% 6.1 % (0-10); NRBC Flagged by Analyzer 0 % (0-5); Neutrophil % 68.4 % (47-70); Platelet Count 240 K/mm3 (150-450); RBC Distribution Width CV 13.3 % (11.6-14.6); RBC Distribution Width SD 41.2 fl (35.1-43.9); White Blood Count 8.3 K/mm3 (4.4-11.0)
[2023-05-19 15:39] LABS: ALB/GLOB Ratio 1.3 RATIO (0.9-2.4); AST(SGOT) 30 U/L (15-37); Alanine Aminotransfer ALT/SGPT 66 U/L (16-61); Albumin, Serum 4.3 g/dL (3.2-5.0); Alkaline Phosphatase 94 U/L (45-117); Anion Gap 7 (5-15); BUN 16 mg/dL (7-18); BUN/Creat Ratio 21.3 RATIO (10-20); Calcium,Total 9.1 mg/dL (8.5-10.1); Chloride 105 mmol/L (98-107); Creatinine, Serum 0.75 mg/dL (0.70-1.30); EST Glomerular Filtration Rate 112 mL/min (>60); Est Glom Filt Rate - Afr Amer 136 mL/min (>60); Globulin 3.4 g/dL (2.2-4.2); Glucose 118 mg/dL (74-106); Potassium 3.8 mmol/L (3.5-5.1); Protein, Total 7.7 g/dL (6.4-8.2); Sodium Level 138 mmol/L (136-145)
== END | disposition home or self-care (01) ==
LOC: MFPLAB 12:07
PROVIDERS: PCP Family Medicine; Visit Provider Family Medicine
DX: E11.9 Type 2 diabetes mellitus without complications (principal); E66.9 Obesity, unspecified; Z68.30 Body mass index [BMI] 30.0-30.9, adult
CPT/HCPCS: 36415; 80053; 83036; 85025

== ENCOUNTER → 2023-07-14 | Outpatient (CLI) | payer OTHER, SELFPAY ==
--- NOTE | 2023-07-14 15:22 | RAD_ITS ---
STUDY: X-RAY - LEFT KNEE REASON FOR EXAM: Male, 62 years old. Post fall knee pain TECHNIQUE: 4 view(s) of the knee. COMPARISON: None. FINDINGS: Normal visualized distal femur. Normal visualized proximal tibia and fibula. Normal proximal tibiofibular articulation. Normal medial femorotibial compartment. Normal lateral femorotibial compartment. Normal patellofemoral articulation. Tiny joint effusion. RAD/Knee 4 or More Views IMPRESSION: Tiny joint effusion. Electronically Signed: Giles Liang MD at 15:54 EST ,
== END | disposition home or self-care (01) ==
LOC: MTRAD 14:45
PROVIDERS: PCP Family Medicine; Referring Provider Physician Assistant Surgical; Visit Provider Physician Assistant Surgical
DX: S80.02XA Contusion of left knee, initial encounter (principal); M25.462 Effusion, left knee
CPT/HCPCS: 73564

== ENCOUNTER 2023-08-19 15:00 | Outpatient (RCR) | payer OTHER, SELFPAY ==
--- NOTE | 2023-08-19 18:29 | HP.PTEVAL ---
Patient's Visit Information Visit Information Visit Information: KAMRON EDWARDS is a 63 year old M referred to Physical Therapy by Dr. Hakeem Cordero MD with a diagnosis of OTHER TEAR OF LATERAL MENISCUS AND MEDIAL MENISCUS LEFT KNEE ,OA LEFT KNEE. Date of Evaluation: 08/19/23 Physical Therapist: Soren Morris, PT, Cert MDT, OCS Visit Plan Frequency: 2x /Week Duration: 4 Weeks Plan: WILL RTD TO DISCUSS POSSIPLE ARTHROSCOPIC KNEE PT INTERVTIONS ROM ,FLEXABILITY KNEE ,STRENGTHNEING QUADS/HAMS/HIP ,MODALTIES AND GAIT TRAINING Subjective Subjective: This 63 y/o male presents to physical therapy with right knee pain. Patient injury Jun carrying wood and slipped and fell on left. Patient had progressively worse . RTW pain became worse with using clutch. Seen urgent care and x-rays showed hair line fx and bone chip . Provided brace and and crutches . Seen DR Cordero recommended PT and cortisone injection . Had MRI showed medial and lateral knee tear. Patient pain located left lateral > medial knee. Aggravating factors unable to squatting ,kneeling and extended walking and bending knee. Uses crutches for gait. Pain medication . Pain described as stabbing and sharp pain. Patient had mild effusion. Patient DR placed patient on short term for work. Patient has difficulty with ache and throbbing. Patient RTD Wednesday discuss surgery arthroscopic. Patient goals to decrease pain. SOCIAL: VOCATION: [employer] Pain Left Knee: Pain Intensity (Out of 10): 6 Pain Intensity Range: 10 Objective Objective: POSTURE: mild forward posture hip/knee slightly flexed GAIT: ambulates with crutches with knee brace with decrease stance time swing phase during gait NEURO: denies paresthesia/tingling PALAPTION: tender medial /lateral joint line EDEMA: mild effusion AROM: 5-85 degrees supine flexion MMT:( peak force) quads 14.2 , hamstrings 12.2 ,hip flexion 19.8 ,hip abduction 20.1 Balance/Special Test Scores Lower Extremity Functional Score: 27 Goals Goal 1:: Patient to be I with HEP Goal Time Frame: 4-6 Weeks Goal 2:: Patient to normalize gait with less antalgic gait Goal Time Frame: 4-6 Weeks Goal 3:: Patient increase AROM supine knee flexion by 0-120 degrees to improve stairs Goal Time Frame: 4-6 Weeks Goal 4:: Patient to demonstrate 50% improvement with less pain and improved function Goal Time Frame: 4-6 Weeks Goal 5:: Patient improve LFES score by 5 points to improve function and gait Goal Time Frame: 4-6 Weeks Rehabilitation Potential Physical Therapy Diagnosis: This patient has medial and lateral meniscus tear left knee with decrease ROM ,decrease strength quad/hams ,decrease gait and pain thus benefit from skilled PT . Will discuss with about arthroscopic knee sugery Rehabilitation Potential: Fair Anticipated Interventions Patient/Client Instruction: Educate patient on: Condition and Plan of Care For the Purpose of:: To decrease pain, To increase ROM, To improve muscle performance and motor function, To improve ability to perform ADL's, To increase tolerance to activity/condition/position, To improve ability of physical actions for home/community/work/leisure, To improve health of tissue, To decrease soft tissue restriction, To increase flexibility/ROM, To improve endurance, To improve balance and To prevent re-injury Therapeutic Exercise to Include: Strength training, Endurance training, Balance training, Flexibilty training, Passive ROM and Active ROM For the Purpose of:: To decrease pain, To increase ROM, To improve muscle performance and motor function, To increase tolerance to activity/condition/position, To improve performance and independence with ADL's, To improve ability of physical actions for home/community/work/leisure, To improve health of tissue, To decrease soft tissue restriction, To increase flexibility/ROM, To reduce risk of recurrence and To improve tolerance to ADL's TENS: Yes IF ES: Yes Cryotherapy (ice pack, ice massage): Yes Thermo therapy (hot pack): Yes Ultrasound (thermal/non thermal): Yes For the Purpose of:: To decrease pain, To increase ROM, To improve nutrient delivery to tissue, To increase oxygenation perfusion, To improve health of tissue and To decrease soft tissue restriction Text: Thank you for the opportunity to evaluate your patient. For Medicare and Medicare HMO plans, please review the plan of care and approve it. It will need to be FAXED BACK to us at [phone] for Medicare purposes. For Medicare only, by signing this I certify the plan of care. Please let me know if there are questions or concerns regarding this plan of care. Physician Signature: Date:
== END 2023-08-19 19:00 | disposition home or self-care (01) ==
LOC: PT 15:00
PROVIDERS: PCP Family Medicine; Referring Provider Orthopaedic Surgery Sports Medicine; Visit Provider Orthopaedic Surgery Sports Medicine
DX: S83.282D Other tear of lateral meniscus, current injury, left knee, subsequent encounter (principal); S83.242D Other tear of medial meniscus, current injury, left knee, subsequent encounter; M17.12 Unilateral primary osteoarthritis, left knee
CPT/HCPCS: 97110; 97162; J2405

== ENCOUNTER 2023-09-15 10:18 | Day surgery (SDC) | payer OTHER, SELFPAY ==
[2023-09-15] VITALS (7 sets, daily range): BP systolic 85–164; BP diastolic 53–81; PULSE 77–96; RESP 16; TEMP 36.1–36.8; O2SAT 95–98; BMI 33.2
--- NOTE | 2023-09-15 10:53 | PCM.HP.STD ---
HPI - General HPI Narrative KAMRON EDWARDS, is a 63 M who presents for left knee arthroscopy, partial medial and lateral meniscectomy. no changes to h and p. knee marked. post op instructions, rab and narcotic counselling. ok to proceed MR#: [id number] Acct: [id number] Name: KAMRON EDWARDS Rep #: [id number] : 1960 Provider: Dr. Hakeem Cordero MD Age/Sex: 63/M Location: [facility] [place].[facility] Status: Signed Intake Vital Signs 07/16/2308:15 Height 5 ft 9 in Intake Visit Reasons: LEFT KNEE Chief Complaint: left knee pain Accompanied by: Self Is patient in pain?: Yes Allergies latex Allergy (Severe, Verified 08/23/23 08:05) PT UNSURE OF REACTIONTetracyclines Allergy (Unknown, Verified 08/23/23 08:05) Other Medications albuterol 90 mcg/actuation aerosol inhaler 90 mcg inhalation PRN PRN ASTHMA 07/24/22 [History Confirmed 08/23/23] atorvastatin 80 mg tablet 80 mg PO QHS 07/24/22 [History Confirmed 08/23/23] blood sugar diagnostic (OneTouch Verio test strips) #10 ea 07/24/22 [History Confirmed 08/23/23] blood-glucose meter (OneTouch Verio Flex Meter) #1 ea 07/24/22 [History Confirmed 08/23/23] dulaglutide 0.75 mg/0.5 mL subcutaneous pen injector (Trulicity) 0.75 mg subcut FR 07/24/22 [History Confirmed 08/23/23] glimepiride 2 mg tablet 2 mg PO DAILY 07/24/22 [History Confirmed 08/23/23] hydrochlorothiazide 25 mg tablet 25 mg PO DAILY 07/24/22 [History Confirmed 08/23/23] losartan 50 mg tablet 50 mg PO DAILY 07/24/22 [History Confirmed 08/23/23] metformin 500 mg tablet 500 mg PO BID 07/24/22 [History Confirmed 08/23/23] multivitamin 1 tab PO DAILY 07/24/22 [History Confirmed 08/23/23] saw palmetto 500 mg capsule 500 mg PO DAILY 07/24/22 [History Confirmed 08/23/23] sitagliptin phosphate 100 mg tablet (Januvia) 100 mg PO DAILY 07/24/22 [History Confirmed 08/23/23] oxycodone 5 mg tablet 5 mg PO Q6H PRN pain 3 days #14 tabs 11/09/22 [Rx Confirmed 08/23/23] naproxen 500 mg tablet 500 mg PO BID PRN pain #30 tabs 07/15/23 [Rx Confirmed 08/23/23] PFSH Medical History Alcohol use Arthritis Arthritis Asthma Asthma Degenerative arthritis of left knee Diabetes Diabetes mellitus Dietary restriction Gastric reflux High cholesterol History of diverticulitis History of IBS Hypertension Hypertension Ingrown toenail (Unknown) Leg cramps Loss of hearing Non-smoker Tear of lateral meniscus of left knee Tear of medial meniscus of left knee Wears glasses Surgical History Hx of colonoscopy [place] teeth removed (Unknown) Family History Mother Diabetes Hypertension Cancer LungFather Bleeding disorder Pt states father had excessive nose bleeds with heavy bleeding Social History Smoking Status: Never smoker alcohol intake: never substance use type: does not use HPI LEFT KNEE Details: This documentation accurately reflects the service provided and the decisions made by me, Dr. Hakeem Cordero MD 08/23/23 0803. Part of today?s visit was documented by [ ], acting as scribe. KAMRON EDWARDS is a 63 year old M here today for FU left knee pain, has been doing PT actually for both knees. Injection helped for about 4 days but pain returned mostly with twisting and lateral side. swelling, using ice. limping and using crutches, popping and mechanical sensation, giving way. Ortho Exam General General: Yes no acute distress Neurologic: Yes alert and Yes oriented x3 Psychologic: Yes reasonable and appropriate Right Knee Patella Translation: 2 Left Knee Skin/Wound: Yes CDI, No ecchymosis, No erythema and No swelling 1+: Effusion Examination: Yes med jt line tenderness, Yes Lat jt line tenderness, No TTP inf pole patella, Yes Crepitus, Yes Pain with flexion, Yes Billie's Test, No TTP Patellar tendon, No TTP Tibial tubercle, No TTP Pes Anserine and No Illiotibial band tenderness Quad Atrophy: No Stability: NML: Anterior Drawer, NML: Randy, NML: Posterior Drawer, NML: Valgus 0, NML: Valgus 30, NML: Varus 0 and NML: Varus 30 Patella Translation: 2 Patella Grind: No KNEE: nvi, rom 0-100, antalgic gait Supplemental Info RAD/Knee 4 or More Views IMPRESSION: Tiny joint effusion. Electronically Signed: Giles Liang MD at 15:54 EST , MRI of the knee from [facility] date is July 21, 2023 impression from the radiologist degenerative lateral meniscal tear. Small medial meniscus intermargin posterior horn tear. Minimal tricompartmental osteoarthritis. I agree with radiologist interpretation. I did have a chance to personally review the images on a CD. Coding Level of Care Code Off vis,est,level 4 Diagnoses Tear of lateral meniscus of left knee S83.282A Tear of medial meniscus of left knee S83.242A Degenerative arthritis of left knee M17.12 Assessment and Plan Assessment and Plan (1) Tear of lateral meniscus of left knee: Status: Acute Plan: 63 yr M with degenerative lateral meniscal tear and small medial meniscus intermargin posterior horn tear. Patient counselled on pros and cons of non op vs surgery in the form of left knee arthroscopy, partial medial and lateral meniscectomy. Patient counseled this would not fix any pain from the arthritis although the patient does have persistent mechanical symptoms and pain along the lateral joint line. Patient would like to go ahead with surgery both signed the consent form today as well as for possible need for blood products. He is a diabetic that can increase the chance of infection or other complications. He understands and wishes to go ahead. Pros and cons risks and benefits were discussed with the patient including but not limited to infection, pain, stiffness, bleeding, damage to surrounding structures, neurovascular injury, recurrence or retear, failure or wear of hardware or fixation, instability, fracture, deep vein thrombosis and pulmonary embolism, anesthetic risks, , patient dissatisfaction, need for further surgery and other risks. Patient understood and wished to proceed with surgery, and signed the informed consent documentation. [facility] Medical History Alcohol use Arthritis Arthritis Asthma Asthma Degenerative arthritis of left knee Diabetes Diabetes mellitus Dietary restriction Gastric reflux High cholesterol History of diverticulitis History of IBS Hypertension Hypertension Ingrown toenail (Unknown) Leg cramps Loss of hearing Non-smoker Tear of lateral meniscus of left knee Tear of medial meniscus of left knee Wears glasses Home Medications albuterol 90 mcg/actuation aerosol inhaler 90 mcg inhalation PRN PRN ASTHMA 07/24/22 [History Last Taken Unknown] atorvastatin 80 mg tablet 80 mg PO QHS 07/24/22 [History Last Taken Unknown] blood sugar diagnostic (AC [employer] Verio test strips) #10 ea 07/24/22 [History Last Taken Unknown] blood-glucose meter (AC [employer] Verio Flex Meter) #1 ea 07/24/22 [History Last Taken Unknown] dulaglutide 0.75 mg/0.5 mL subcutaneous pen injector (Trulicity) 0.75 mg subcut FR 07/24/22 [History Last Taken Unknown] glimepiride 2 mg tablet 1 mg PO DAILY 07/24/22 [History Last Taken Unknown] hydrochlorothiazide 25 mg tablet 25 mg PO DAILY 07/24/22 [History Last Taken Unknown] losartan 50 mg tablet 100 mg PO DAILY 07/24/22 [History Last Taken 09/14/23] metformin 500 mg tablet 500 mg PO BID 07/24/22 [History Last Taken Unknown] multivitamin 1 tab PO DAILY 07/24/22 [History Last Taken Unknown] saw palmetto 500 mg capsule 500 mg PO DAILY 07/24/22 [History Last Taken Unknown] sitagliptin phosphate 100 mg tablet (Januvia) 100 mg PO DAILY 07/24/22 [History Last Taken Unknown] naproxen 500 mg tablet 500 mg PO BID PRN pain #30 tabs 07/15/23 [Rx Last Taken Unknown] aspirin 81 mg capsule 81 mg PO DAILY 09/03/23 [History Last Taken Unknown] Allergy/AdvReac Type Severity Reaction Status Date / Time latex Allergy Severe PT UNSURE Verified 09/15/23 10:40 OF REACTION Tetracyclines Allergy Unknown Other Verified 09/15/23 10:40 Family History Mother Diabetes Hypertension Cancer Lung Father Bleeding disorder Pt states father had excessive nose bleeds with heavy bleeding Surgical History (Updated 09/03/23 @ 15:18 by Lindsay Arshad) History of hernia repair Hx of colonoscopy [place] teeth removed (Unknown) Social History Smoking Status: Never smoker alcohol intake: never substance use type: does not use
[2023-09-15] MEDS: Lactated Ringers 1,000 ML 15 ML IV ×2 (11:02→14:30)
[2023-09-15 11:08] LABS: Bedside Glucose 201 mg/dL (74-106)
[2023-09-15] MEDS: Cefazolin 2 GM in 0.9% Normal Saline (100mL Bag) 100 ML IV (11:28)
--- OUTSIDE RECORDS SUMMARY | 2023-09-15 11:53 | XMS RPT_ITS | CCD ---
Author Name Unknown Address [address] [place] [address] Organization [facility] Care Team Providers Care Director Of Automation Name Role Phone Shayna Martini Unavailable Unavailable Unavailable Primary Care Provider JESUS Keith Referring Unavailable Allergies Allergy Classification Reported Allergen(s) Allergy Type Date of Onset Reaction(s) Facility (1 source) natural latex rubber; Translations: [LATEX] allergy to substance [facility] Work Phone: (1 source) Ragweed pollen drug allergy [facility] Work Phone: (1 source) tetracycline drug allergy 1 [facility] Work Phone: (1 source) MOLD,DUST; Translations: [MOLD,DUST] allergy to substance [facility] Work Phone: Medications Completed/Discontinued Medications Medication Drug Class(es) Dates Sig (Normalized) Sig (Original) ALBUTEROL SULFATE (1 source) beta2-Adrenergic Agonist Start: 03-26-2017 PROAIR HFA 108 (90 Base) MCG/ACT AERS 1-2 Puffs every 4 hours as needed for cough ALBUTEROL SULFATE [id number] Shayna Martini aspirin 81 mg oral strip (2 sources) Nonsteroidal Anti-inflammatory Drug Start: 03-26-2017 take 1 tablet by mouth once daily ASPIRIN ADULT LOW DOSE 81 MG TBEC One tablet by mouth daily ASPIRIN [id number] Shayna Martini atorvastatin 80 mg oral tablet (1 source) HMG-CoA Reductase Inhibitor Start: 03-26-2017 ATORVASTATIN CALCIUM 80 MG TABS Take 1/2 tablet to 1 tablet daily as directed ATORVASTATIN CALCIUM [id number] Shayna Martini EXENATIDE (1 source) GLP-1 Receptor Agonist Start: 03-26-2017 BYETTA 10 MCG PEN 10 MCG/0.04ML SOPN 10 SC twice daily EXENATIDE [id number] Shayna Martini FLUTICASONE-SALMETE ROL (1 source) Corticosteroid, beta2-Adrenergic Agonist ADVAIR DISKUS 500-50 MCG/DOSE AEPB twice a day FLUTICASONE-SALMETE ROL [id number] Jannet Matute LPN metFORMIN hydrochloride 500 mg oral tablet (1 source) Biguanide Start: 03-26-2017 METFORMIN HCL 500 MG TABS Take two tablets in the morning and 1 tablet in the evening METFORMIN HCL [id number] Shayna Martini montelukast 10 mg oral tablet (1 source) Leukotriene Receptor Antagonist Start: 03-26-2017 take 1 tablet by mouth once daily MONTELUKAST SODIUM 10 MG TABS One tablet by mouth daily MONTELUKAST SODIUM 08461593241 Shayna Martini MULTIPLE VITAMIN (1 source) Start: 03-26-2017 MULTIVITAMINS CAPS MULTIPLE VITAMIN [id number] Shayna Martini OMEPRAZOLE MAGNESIUM PACK (1 source) Proton Pump Inhibitor PRILOSEC PACK OMEPRAZOLE MAGNESIUM PACK [id number] Jannet Matute LPN valsartan 160 mg oral tablet (1 source) Angiotensin 2 Receptor Kim take 1 tablet by mouth once daily DIOVAN 160 MG TABS One tablet by mouth daily VALSARTAN 29927752060 Jannet Matute LPN vitamin b 12 0.1 mg oral tablet (1 source) Vitamin B12 Start: 03-26-2017 take 1 tablet by mouth once daily VITAMIN B-12 100 MCG TABS One tablet by mouth daily CYANOCOBALAMIN [id number] Shayna Martini Problems Active Problems Problem Classification Problem Date Documented Da te Episodic/Chronic Asthma (1 source) Asthma; Translations: [Unspecified asthma, uncomplicated] Onset: 03-26-2017 03-26-2017 Chronic Diabetes mellitus with complications (1 source) Type II diabetes mellitus uncontrolled; Translations: [Type 2 diabetes mellitus with hyperglycemia] Onset: 03-26-2017 03-26-2017 Chronic Disorders of lipid metabolism (1 source) Hyperlipidemia; Translations: [Hyperlipidemia, unspecified] Onset: 03-26-2017 03-26-2017 Chronic Essential hypertension (1 source) Hypertensive disorder; Translations: [Essential (primary) hypertension] Onset: 03-26-2017 03-26-2017 Chronic Joint disorders and dislocations; trauma-related (1 source) Unspecified internal derangement of left knee; Translations: [Unspecified internal derangement of left knee] Onset: 07-21-2023 Chronic Unclassified (1 source) General examination of patient ; Translations: [Other specified general medical examinations] Onset: 01-06-2011 01-06-2011 Past or Other Problems Problem Classification Problem Date Documented Da te Episodic/Chronic Other gastrointestinal disorders (1 source) Heartburn; Translations: [Heartburn] Onset: 03-26-2017 03-26-2017 Episodic Results Test Name Value Interpretation Reference Range Facil ity Vital Signs Date Time Vital Sign Value Performing Clinician Facility 01-06-2011 15:01-0400 BMI (Body Mass Index) 33.09 kg/m2 [facility] Work Phone: 01-06-2011 15:01-0400 Body Temperature 98.3 [degF] [facility] Work Phone: 01-06-2011 15:01-0400 BP Diastolic 80 mm[Hg] [facility] Work Phone: 01-06-2011 15:01-0400 BP Systolic 138 mm[Hg] [facility] Work Phone: 01-06-2011 15:01-0400 Height 177.8 cm [facility] Work Phone: 01-06-2011 15:01-0400 Pulse (Heart Rate) 88 /min [facility] Work Phone: 01-06-2011 15:01-0400 Respiratory Rate 12 /min [facility] Work Phone: 01-06-2011 15:01-0400 Weight 104.24 kg [facility] Work Phone: Encounters Encounter Date Encounter Type Care Provider Facility Start: 07-21-2023 End: 07-21-2023 ambulatory JESUS LUST Facility:[facility] Start: 07-21-2023 End: 07-21-2023 Subsequent hospital visit by physician [facility] (I-Stat/1.5t) Work Phone: Radiology Procedures Date Procedure Procedure Detail Performing Clinician Start: 07-21-2023 Mri any jt lower ext rem w/o contrast matrl [facility] Provider Plan of Treatment Date Care Activity Detail Author Start: 01-07-2032 Urine microalbumin profile DTaP,Tdap,Td Vaccine (2 - Td or Tdap) [facility] Start: 04-16-2023 Covid-19 Vaccine () Covid-19 Vaccine () [facility] Start: 04-16-2023 Influenza vaccination Influ[facility] Start: 08-16-2022 Depression Assessment Depression Assessment [facility] Start: 2022 RSV Vaccine (1 - 1-dose 60+ series) RSV Vaccine (1 - 1-dose 60+ series) [facility] Start: 2017 Prostate Cancer Screening Discussion Prostate Cancer Screening Discussion [facility] Start: 05-18-2017 End: 05-18-2017 Appointment Appointment [facility] Work Phone: Start: 2012 Shingrix Vaccine (1 of 2) Shingrix Vaccine (1 of 2) [facility] Start: 2007 Cologuard (FIT-DNA) Cologuard (FIT-DNA) [facility] Start: 2007 Colonoscopy Colonoscopy [facility] Start: 2007 Colorectal Cancer Screening Colorectal Cancer Screening [facility] Start: [address] Colonography [facility] Start: 2007 Diabetes Screening Diabetes Screening [facility] Start: 2007 Fecal Occult Blood Fecal Occult Blood [facility] Start: 2007 Sigmoidoscopy Sigmoidoscopy [facility] Start: 1997 Lipid 1996 panel - Serum or Plasma Lipid Screening [facility] Start: 1980 Hepatitis C Screening Hepatitis C Screening [facility] Start: 1980 HIV Screening HIV Screening [facility] Payers Date Payer Category Payer Unknown MMO [employer] PPO [id number] 2022-Present [phone] [address] [place] [address] PPO [id number] 2022 Unknown [id number] Social History Date Type Detail [facility] Start: 1960 Sex Assigned At Not on file [facility] Gender identity Not on file [facility]ic Progress note 07-21-2023 Note Date & Type Note Facility 07-21-2023 Note HNO ID: [id number] Author: Kelsey Damon RT([place]) Service: ? Author Type: Technologist Type: Progress Notes Filed: 07/21/2023 12:56 PM Note Text: Radiology Service Progress Note PATIENT NAME: Antoine Ingram DATE OF SERVICE: July 21, 2023 TIME: 12:56 PM PATIENT IDENTITY VERIFICATION COMPLETED USING TWO (2) IDENTIFIERS: Name and Date of confirmed by patient verbally. FALL SCREENING: Has the patient had 2 falls in the last year or 1 fall with injury or currently using an Ambulatory Assistive Device (Walker, Cane, Wheelchair, Crutches, etc.)? Yes, Patient High Risk for Falls What interventions were put in place to prevent falls during this visit? Instructed Patient to Call for Help if Needed, Offered Assistance with Transfers/Clothing, Instructed Patient to Remain Seated (Not on Exam Table) Until Exam, and Increased Observations by Caregivers PATIENT GENDER DATA: Male PATIENT RELEVANT IMPLANT DATA REVIEWED: Yes RADIOLOGY DEPARTMENT: MR; Exam(s) Completed: Lower MSK: Knee, left PERIPHERAL IV DATA: Not applicable SIGNED BY: RT Rocky(R) July 21, 2023 12:56 PM [facility] History of Present illness Narrative 07-21-2023 Kelsey Damon RT(R) - 07/21/2023 1:00 PM EST Note Date & Type Note Facility 07-21-2023 History of Presen t illness Narrative Radiology Service Progress Note PATIENT NAME: Antoine Ingram DATE OF SERVICE: July 21, 2023 TIME: 12:56 PM PATIENT IDENTITY VERIFICATION COMPLETED USING TWO (2) IDENTIFIERS: Name and Date of confirmed by patient verbally. FALL SCREENING: Has the patient had 2 falls in the last year or 1 fall with injury or currently using an Ambulatory Assistive Device (Walker, Cane, Wheelchair, Crutches, etc.)? Yes, Patient High Risk for Falls What interventions were put in place to prevent falls during this visit? Instructed Patient to Call for Help if Needed, Offered Assistance with Transfers/Clothing, Instructed Patient to Remain Seated (Not on Exam Table) Until Exam, and Increased Observations by Caregivers PATIENT GENDER DATA: Male PATIENT RELEVANT IMPLANT DATA REVIEWED: Yes RADIOLOGY DEPARTMENT: MR; Exam(s) Completed: Lower MSK: Knee, left PERIPHERAL IV DATA: Not applicable SIGNED BY: RT Rocky(R) July 21, 2023 12:56 PM documented in this encounter [facility] Reason for visit Narrative Diagnostic Procedure Only (Routine) - Closed Note Date & Type Note Facility Referral ID Status Reason Start Date Expiration Date Visits Re quested Visits Authorized [id number] Closed 07/16/2023 08/30/2023 1 1 [facility] Summary Purpose Family History No Family History Records Found Advance Directives No Advanced Directives Records Found Additional Source Comments Source Comments (unrecognize d section and content) In the event this informatio n is protected by the Federal Confidentiality of Alcohol and Drug Abuse Patient Records regulations: The Federal rules restrict any use of the information to criminally investigate or prosecute any alcohol or drug abuse patient.[facility] (unrecognized sect ion and content) No Status Records Found INFORMATION SOURCE (unrecogn ized section and content) FOR RECORDS PERTAINING TO PATIENTS WHO ARE OR HAVE BEEN ENROLLED IN A CHEMICAL DEPENDENCY/SUBSTANCEABUSE PROGRAM, SOME INFORMATION MAY BE OMITTED. This clinical summary was aggregated from multiple sources. Caution should be exercised in using it in the provision of clinical care. This summary normalizes information from multiple sources, and as a consequence, information in this document may materially change the coding, format and clinical context of patient data. In addition, data may be omitted in some cases. CLINICAL DECISIONS SHOULD BE BASED ON THE PRIMARY CLINICAL RECORDS. [facility]. provides no warranty or guarantee of the accuracy or completeness of information in this document.
[2023-09-15] MEDS: Epinephrine (1 mg/ml) 1 MG/ML VIAL (12:10)
--- NOTE | 2023-09-15 12:16 | PCM.OPRPT ---
Problems Associated Problem List Diagnoses (1) Tear of medial meniscus of left knee: (2) Tear of lateral meniscus of left knee: (3) Degenerative arthritis of left knee: Report of Operation Date of Procedure: 09/15/23 Pre-Operative Diagnosis: L knee medial and lateral meniscus tears Post-Operative Diagnosis: same Surgery/Procedure Performed:: L knee arthroscopy, partial medial and partial lateral meniscectomy Surgeon: Hakeem Cordero Type of Anesthesia: Spinal Anesthesiologist: Colton Ardon Estimated Blood Loss (mL): 10 Description of Procedure: Patient brought to the operating theater placed supine on the table. Spinal anesthesia induced. All bony prominences padded. SCD on the on nonoperative leg. Operative extremity left lower extremity prepped and draped in the usual sterile fashion chlorhexidine-based prep solution allowing 3 minutes drying time prior to draping. Stress positioner was used to the patient's left side as well as a tourniquet applied to the left thigh appropriately padded. 2 g IV Ancef administered prior to the start of the procedure. Preoperative timeout performed to confirm the site patient and the surgery. Began by elevating the limb inflated the tourniquet to 250 mmHg. Made standard anterolateral and anteromedial arthroscopy portals. Did a full diagnostic arthroscopy. Undersurface of the patella had grade 2 sometimes 3 minor changes and trochlea had grade 2 changes. Cartilage on the medial and lateral compartments grade 1 changes both sides. Gutters entered no loose bodies. Meniscus on both sides was stable and solid to probing but there was posterior horn posterior one third medial meniscus fraying and a small tear inner aspect of the towards the mid body as well of the medial meniscus. I used a shaving instrument to debride that stable margins removed a very small amount overall surface of the medial meniscus. ACL and PCL appeared normal I removed the ligamentum mucosum. Lateral meniscus again was stable and solid to probing but had degenerative tearing mostly along the inner one third in the mid body to anterior one third of the meniscus. I again debrided this for about 5% overall total surface volume of the lateral meniscus to stable margins. Case terminated arthroscopy pictures taken and saved onto the system throughout the case. Wounds cleaned with wet and dry dressing tourniquet let down meticulous hemostasis. Skin cleaned wet and dry dressing then application of Steri-Strips Adaptic 4 x 4 gauze ABD dressing and 6 inch Kory wrap bandage loosely wrapped. Patient transferred off the operating table and taken to postanesthetic care unit in stable condition. All sponge and numbers and counts were correct no complications plan for the patient weightbearing as tolerated range of motion as tolerated crutches for the first 1 to 2 weeks as needed. cpt 35197 Complications none Admit VTE Documentation VTE Present on Admission: No VTE Mechan Device Prophylaxis: SCD's VTE Pharm Prophylaxis ordered?: No Reason prophylaxis not ordered:: Treatment Not Indicated Procedures Musculoskeletal 20xxx-29xxx: Other Procedure See Report
--- NOTE | 2023-09-15 12:24 | EX.PCM.DISCH ---
Discharge Instructions Diet Discharge Diet: No restrictions Activity Discharge Activity: Use Crutches Weight Bearing Status: Weight bearing as tolerated Lifting Restrictions: ROM as tolerated Keep extremity elevated above heart level: Operative Extremity Dressing / Incision Call your doctor if your incision/area has: Continuous Slow Oozing, Sudden Increased Bleeding, Increased Pain/ Swelling, Increased Redness, Foul Smelling Discharge and Swelling at the incision site Remove Dressing in: leave in place till F/U Follow Up Care Please Follow Up With: Hakeem Cordero MD When: 2 days Test Results: Test results from this visit will be discussed in further detail at your follow-up appointment, if applicable. Discharge Plan Admission Attending Provider: Hakeem Cordero Primary Care Provider: Jorden Henderson Instructions Patient Instructions: After Knee Arthroscopy Discharge Orders/Prescriptions Prescriptions: New oxycodone-acetaminophen [Endocet] 5-325 mg tablet 1 tab PO Q4H MDD 6 PRN (Reason: pain) 5 Days Qty: 20 0RF No Action Trulicity 0.75 mg/0.5 mL pen injector 0.75 mg subcut FR hydrochlorothiazide 25 mg tablet 25 mg PO DAILY glimepiride 2 mg tablet 1 mg PO DAILY Patient Comments: TAKE 1 TABLET BY MOUTH ONCE DAILY FOR 90 DAYS atorvastatin 80 mg tablet 80 mg PO QHS losartan 50 mg tablet 100 mg PO DAILY (DME) OneTouch Verio test strips Strip See Rx Instructions .ROUTE .MEDSUPPLY Qty: 10 Rx Instructions: As directed (DME) blood-glucose meter [OneTouch Verio Flex meter[place] [facility] [place]ROUTE .MEDSUPPLY Qty: 1 Rx Instructions: As directed metformin 500 mg tablet 500 mg PO BID Januvia 100 mg tablet 100 mg PO DAILY multivitamin Tablet 1 tab PO DAILY saw palmetto 500 mg capsule 500 mg PO DAILY Rx Instructions: give with food (meal/snack) albuterol 90 mcg/actuation aerosol 90 mcg inhalation PRN PRN (Reason: ASTHMA) naproxen 500 mg tablet 500 mg PO BID PRN (Reason: pain) Qty: 30 0RF aspirin 81 mg capsule 81 mg PO DAILY Referrals / Follow Up: Jorden Henderson MD [Primary Care Provider] - Hakeem Cordero MD [Med Staff - Active Staff] - Disposition Disposition (needs filled in before D/C Order can be placed): Home, Self Care
[2023-09-15 13:15] LABS: Bedside Glucose 193 mg/dL (74-106)
== END 2023-09-15 16:20 | disposition home or self-care (01) ==
LOC: SDC 10:23 → AC 10:24
PROVIDERS: PCP Family Medicine; Referring Provider Orthopaedic Surgery Sports Medicine; Visit Provider Orthopaedic Surgery Sports Medicine
PROC: (CPT 29870; principal; 2023-09-15 11:30)
DX: M17.12 Unilateral primary osteoarthritis, left knee (principal); E11.9 Type 2 diabetes mellitus without complications; Z79.84 Long term (current) use of oral hypoglycemic drugs; S83.242A Other tear of medial meniscus, current injury, left knee, initial encounter; I10 Essential (primary) hypertension; E78.00 Pure hypercholesterolemia, unspecified; S83.282A Other tear of lateral meniscus, current injury, left knee, initial encounter; S83.206A Unspecified tear of unspecified meniscus, current injury, right knee, initial encounter; J45.909 Unspecified asthma, uncomplicated; Z87.19 Personal history of other diseases of the digestive system; X58.XXXA Exposure to other specified factors, initial encounter
CPT/HCPCS: 29880; 01400; 82962; J7120; J2405

== ENCOUNTER 2023-10-27 14:30 | Outpatient (RCR) | payer OTHER, SELFPAY ==
--- NOTE | 2023-10-18 19:38 | HP.PTEVAL_ITS ---
Patient's Visit Information Visit Information Visit Information: KAMRON EDWARDS is a 63 year old M referred to Physical Therapy by Dr. Hakeem Cordero MD with a diagnosis of TEAR OF MEDIAL AND LATERAL MENISCUS LEFT AND RIGHT KNEE. Date of Evaluation: 10/18/23 Physical Therapist: Soren Morris, PT, Cert MDT, OCS Visit Plan Frequency: 2x /Week Duration: 4 Weeks Plan: S/P ARTHROSCOPY MEDIAL/LATERAL MENISCUS 09/15/23 * PRECAUTION LATEX ALLERGY* PT INTERVENTIONS ROM KNEE , STRENGTHENING QUADS/HAMS/HIP ,FLEXIBILITY ,ENDURANCE TRAINING AND FUNCTION STRENGTHENING Subjective Subjective: This 63 y/o male presents to physical therapy with left knee arthroscopic medial and lateral meniscectomy on 09/15/[address] Cordero . Patient was d/c from [facility] for 3 weeks ,gradually weaned self from crutches but uses soft knee brace. Patient injury knee carry wood Jul 07 2023 fell sideways and hit knee on step. Tried PT 1 visit. Patient had MRI showed tears of meniscus and moved bone spurs but showed DJD. Seen Dr 09/24/23 then recommended.Pain located global knee anterior > lateral ,described as occasional sharp full ache. Aggravating factors walking ,standing extended distances unable squat kneel and difficulty with stairs one steps at time. Alleviating rest and over counter medication. Denies paresthesia/tingling.Patient sleeping okay. RTW date 10/29/23. Patient condition affects QOL and RTW. Patient goals walk better ,stronger and RTW, SOCIAL: [employer]: [employer] Pain Left Knee: Pain Intensity (Out of 10): 4 Pain Intensity Range: 10 Objective Objective: POSTURE: trunk slightly flexed GAIT: ambulate with knee extended with decrease swing phase with decrease stance time with antalgic gait EDEMA: absent NEURO: intact PALAPTION: unremarkable AROM: supine knee flexion 0-110 degrees MMT: ( peak force) quads 15.7 ,hamstrings 17.7 ,hip abduction 12.9 STAIRS: one step at time with rail FLEXIBILITY: hamstrings min tight Balance/Special Test Scores Lower Extremity Functional Score: 31 Goals Goal 1:: Patient to be I with HEP for knee Goal Time Frame: 4-6 Weeks Goal 2:: Patient to improve AROM supine knee flexion by 5-10 degrees to improve stairs Goal Time Frame: 4-6 Weeks Goal 3:: Patient to normalize gait pattern Goal Time Frame: 4-6 Weeks Goal 4:: Patient to improve peak force quads/hams/hip by 10-15 # strength to improve function Goal Time Frame: 4-6 Weeks Goal 5:: Patient to improve LFES score by 5-10 points to improve QOL and function Goal Time Frame: 4-6 Weeks Goal 6:: Patient to demonstrate 70% improvement and function ADLS and RTW Goal Time Frame: 4-6 Weeks Rehabilitation Potential Physical Therapy Diagnosis: This patient had tear medial and lateral meniscus thus underwent s/p arthroscopic meniscectomy with some pain ,weakness quads/hams impairs gait and return to work thus benefit from skilled PT Rehabilitation Potential: Good Anticipated Interventions Patient/Client Instruction: Educate patient on: Condition and Plan of Care For the Purpose of:: To decrease pain, To increase ROM, To improve muscle performance and motor function, To improve ability to perform ADL's, To increase tolerance to activity/condition/position, To improve ability of physical actions for home/community/work/leisure, To improve gait and locomotor functions, To improve health of tissue, To decrease soft tissue restriction, To increase flexibility/ROM, To improve endurance, To improve balance, To prevent re-injury and To improve tolerance to ADL's Therapeutic Exercise to Include: Strength training, Endurance training, Balance training, Postural training, Flexibilty training and Active ROM Comment: QUADS/HAMS/HIP For the Purpose of:: To decrease pain, To increase ROM, To improve muscle performance and motor function, To increase tolerance to activity /condition/position, To improve ability of physical actions for home/community/work/leisure, To improve health of tissue, To decrease soft tissue restriction, To increase flexibility/ROM, To improve endurance, To improve balance, To reduce risk of recurrence and To improve tolerance to ADL's TENS: Yes IF ES: Yes Cryotherapy (ice pack, ice massage): Yes Thermo therapy (hot pack): Yes Ultrasound (thermal/non thermal): Yes For the Purpose of:: To decrease pain, To increase ROM, To improve nutrient delivery to tissue, To increase oxygenation perfusion, To improve gait and locomotor functions and To decrease soft tissue restriction Text: Thank you for the opportunity to evaluate your patient. For Medicare and Medicare HMO plans, please review the plan of care and approve it. It will need to be FAXED BACK to us at [phone] for Medicare purposes. For Medicare only, by signing this I certify the plan of care. Please let me know if there are questions or concerns regarding this plan of care. Physician Signature: Date:
--- NOTE | 2023-12-07 15:20 | HP.PT.NRP ---
Patient Information Patient Information: KAMRON EDWARDS was seen in my office for initial evaluation on 10/18/23. The following Plan of Care was established for this patient: POC Established Initial Frequency: 2x /Week Initial Duration: 4 Weeks Anticipated Interventions Patient/Client Instruction: Educate patient on: Condition and Plan of Care For the Purpose of:: To decrease pain, To increase ROM, To improve muscle performance and motor function, To improve ability to perform ADL's, To increase tolerance to activity/condition/position, To improve ability of physical actions for home/community/work/leisure, To improve gait and locomotor functions, To improve health of tissue, To decrease soft tissue restriction, To increase flexibility/ROM, To improve endurance, To improve balance, To prevent re-injury and To improve tolerance to ADL's Therapeutic Exercise to Include: Strength training, Endurance training, Balance training, Postural training, Flexibilty training and Active ROM For the Purpose of:: To decrease pain, To increase ROM, To improve muscle performance and motor function, To increase tolerance to activity/condition/position, To improve ability of physical actions for home/community/work/leisure, To improve health of tissue, To decrease soft tissue restriction, To increase flexibility/ROM, To improve endurance, To improve balance, To reduce risk of recurrence and To improve tolerance to ADL's TENS: Yes IF ES: Yes Cryotherapy (ice pack, ice massage): Yes Thermo therapy (hot pack): Yes Ultrasound (thermal/non thermal): Yes For the Purpose of:: To decrease pain, To increase ROM, To improve nutrient delivery to tissue, To increase oxygenation perfusion, To improve gait and locomotor functions and To decrease soft tissue restriction Last Seen Last Seen: This patient was last seen in our office . Pertinent comments regarding their Physical therapy will appear below: Patient seen for PT for medial and lateral meniscectomy for ROM and strengthening doing well thus d/c At this point I will be discontinuing this patient from physical therapy. I would be happy to see this patient again in the future if found appropriate by the physician. Thank you! Soren Morris, PT, Cert MDT, OCS Balance/Gait/Functional tests Balance/Special Test Scores Lower Extremity Functional Score: 55
== END 2023-10-27 19:00 | disposition home or self-care (01) ==
LOC: PT 14:30
PROVIDERS: PCP Family Medicine; Referring Provider Orthopaedic Surgery Sports Medicine; Visit Provider Orthopaedic Surgery Sports Medicine
DX: S86.912D Strain of unspecified muscle(s) and tendon(s) at lower leg level, left leg, subsequent encounter (principal); S83.242D Other tear of medial meniscus, current injury, left knee, subsequent encounter; S83.282D Other tear of lateral meniscus, current injury, left knee, subsequent encounter
CPT/HCPCS: 97110; 97162

== ENCOUNTER 2024-04-06 18:51 | Emergency (ER) | payer OTHER, SELFPAY ==
[2024-04-06 18:52] VITALS: BP 157/94; PULSE 96; RESP 18; TEMP 37; O2SAT 98; BMI 31.1
--- NOTE | 2024-04-06 23:12 | EDS_ITS ---
HPI History of Present Illness Chief Complaint: Cold Sx Informant: patient Narrative Narrative: 63-year-old male presenting to the emergency room with fever. Patient states that on Wednesday when he woke he had a scratchy throat and subsequently has developed generalized myalgias cough with phlegm production nasal congestion and today fever of 101. He notes generalized fatigue. He notes a history of asthma as well as diabetes and hypertension. He states he has not had to use his rescue inhaler during this illness. [facility] Medical History Tear of lateral meniscus of left knee Tear of medial meniscus of left knee Degenerative arthritis of left knee Loss of hearing Wears glasses Alcohol use Arthritis Diabetes High cholesterol Dietary restriction History of diverticulitis History of IBS Gastric reflux Non-smoker Asthma Leg cramps Hypertension Ingrown toenail (Unknown) Arthritis Hypertension Diabetes mellitus Asthma Home Medications ?Medication ?Instructions ?Recorded ?Last Taken ?Type albuterol 90 mcg/actuation aerosol 90 mcg inhalation PRN PRN ASTHMA 07/24/22 Unknown History inhaler atorvastatin 80 mg tablet 80 mg PO QHS 07/24/22 Unknown History blood sugar diagnostic (OneTouch #10 ea 07/24/22 Unknown History Verio test strips) blood-glucose meter (OneTouch #1 ea 07/24/22 Unknown History Verio Flex Meter) dulaglutide 0.75 mg/0.5 mL 0.75 mg subcut FR 07/24/22 Unknown [facility] glimepiride 2 mg tablet 1 mg PO DAILY 07/24/22 Unknown History hydrochlorothiazide 25 mg tablet 25 mg PO DAILY 07/24/22 Unknown History losartan 50 mg tablet 100 mg PO DAILY 07/24/22 09/14/23 History metformin 500 mg tablet 500 mg PO BID 07/24/22 Unknown History multivitamin 1 tab PO DAILY 07/24/22 Unknown History saw palmetto 500 mg capsule 500 mg PO DAILY 07/24/22 Unknown History sitagliptin phosphate 100 mg 100 mg PO DAILY 07/24/22 Unknown History tablet (Januvia) naproxen 500 mg tablet 500 mg PO BID PRN pain #30 tabs 07/15/23 Unknown Rx aspirin 81 mg capsule 81 mg PO DAILY 09/03/23 Unknown History Allergy/AdvReac Type Severity Reaction Status Date / Time latex Allergy Severe PT UNSURE Verified 04/06/24 18:52 OF REACTION Tetracyclines Allergy Unknown Other Verified 04/06/24 18:52 Family History Mother Diabetes Hypertension Cancer Lung Father Bleeding disorder Pt states father had excessive nose bleeds with heavy bleeding Surgical History History of hernia repair Hx of colonoscopy [place] teeth removed (Unknown) Social History Smoking Status: Never smoker alcohol intake: never substance use type: does not use ROS ROS ED Constitutional Constitutional ED: Reports chills, fever(s) and sweats; Denies weight loss Eyes Eyes: Denies change in vision or diplopia ENT ENT ED: Reports rhinorrhea and sore throat; Denies ear pain Cardiovascular Cardiovascular: Denies chest pain, orthopnea, palpitations or racing heartbeat Respiratory/Chest Respiratory/Chest: Reports cough, dyspnea and sputum; Denies orthopnea Gastrointestinal Gastrointestinal: Reports diarrhea; Denies abdominal pain, nausea or vomiting Genitourinary Genitourinary ED: Denies dysuria, hematuria or urinary frequency Musculoskeletal Musculoskeletal: Reports myalgias; Denies arthralgias or neck pain Integumentary Denies abscess or rash Neurologic Neurologic: Denies headache(s) or weakness Psychiatric Psychiatric: Denies anxiety, depression, suicidal ideation or suicidal thoughts Endocrine Endocrinology: Denies polydipsia, polyphagia or polyuria Allergic/Immunologic Allergic/Immunologic ED: Denies mouth swelling, tongue swelling or urticaria EXAM Physical Exam Const Vital Signs: 04/06/24 18:52 04/06/24 23:10 04/06/24 23:14 Temperature 98.6 F Temperature Source Oral Pulse Rate 96 91 Respiratory Rate 18 16 Respiratory Effort Short of Breath Respiratory Pattern Tachypnea Blood Pressure 157/94 H 101/58 L Blood Pressure Mean 115 72 Pulse Ox 98 96 Oxygen Delivery Method Room Air Room Air Positive well nourished and well developed General Appearance ED: well developed HEENT Reports normocephalic, head/scalp atraumatic and moist mucous membranes HEENT Narrative: Mild turbinate edema. There is evidence of postnasal drip. Eyes PERRL and EOMs intact bilaterally Neck no lymphadenopathy, supple and no JVD Resp normal respiratory effort and clear to auscultation bilaterally Cardio regular rate, regular rhythm and no murmurs GI normal to inspection, nondistended, normoactive bowel sounds and non-tender Palpation: soft Back/Spine no CVA tenderness and normal ROM Extremity normal to inspection General Extremety ED: Negative for edema General Extremity: Negative for edema Neuro oriented x3 and CN's II-XII intact bilaterally Sensorium / Orientation: alert Motor Exam: strength 5/5 throughout Psych mental status grossly normal Mood & Affect: Negative for depressed or tearful Skin no rashes or lesions noted and no wounds MDM MDM MDM Narrative Medical decision making narrative: Differential diagnosis includes asthma bronchitis viral URI viral syndrome asthma exacerbation My independent interpretation the chest x-ray is no acute process. COVID influenza and RSV swabs were obtained and patient is COVID-19 positive. I do not hear any wheezing. Patient appears clinically well would recommend continued supportive care at home including oral hydration fever control. Albuterol as needed return if wheezing or change in cough/shortness of breath or worsening or concerns History & Record Review Discussion w/independent historian: Patient Lab Data Attestation: I reviewed the patient's lab results. Radiography Diagnostic Testing: Clinical Impression(s) from Imaging Studies Chest X-Ray 04/06/24 23:45 IMPRESSION: No radiographic evidence of acute cardiopulmonary disease. Electronically Signed: Rashmi Pineda MD at 0:56 EDT Reading Location ID and State: [address] [place] [address] , Service support , Discharge Plan Triage Chief Complaint: Cold Sx Other Complaint: Fever ED Provider: Jim Vegas Dx/Rx/DC Orders Clinical Impression: COVID-19 Instructions: Coronavirus Disease 2019 (COVID-19): Overview Prescriptions: No Action Trulicity 0.75 mg/0.5 mL pen injector 0.75 mg subcut FR hydrochlorothiazide 25 mg tablet 25 mg PO DAILY glimepiride 2 mg tablet 1 mg PO DAILY Patient Comments: TAKE 1 TABLET BY MOUTH ONCE DAILY FOR 90 DAYS atorvastatin 80 mg tablet 80 mg PO QHS losartan 50 mg tablet 100 mg PO DAILY (DME) OneTouch Verio test strips Strip See Rx Instructions .ROUTE .MEDSUPPLY Qty: 10 Rx Instructions: As directed (DME) blood-glucose meter [facility] Instructions .ROUTE .MEDSUPPLY Qty: 1 Rx Instructions: As directed metformin 500 mg tablet 500 mg PO BID Januvia 100 mg tablet 100 mg PO DAILY multivitamin Tablet 1 tab PO DAILY saw palmetto 500 mg capsule 500 mg PO DAILY Rx Instructions: give with food (meal/snack) albuterol 90 mcg/actuation aerosol 90 mcg inhalation PRN PRN (Reason: ASTHMA) naproxen 500 mg tablet 500 mg PO BID PRN (Reason: pain) Qty: 30 0RF aspirin 81 mg capsule 81 mg PO DAILY Primary Care Provider: Jorden Henderson Referrals: Jorden Henderson MD [Primary Care Provider] - As Needed Print Language: Croatian Disposition Disposition: Home, Self Care
[2024-04-06 23:14] VITALS: BP 101/58; PULSE 91; RESP 16; O2SAT 96
--- NOTE | 2024-04-06 23:45 | RAD_ITS ---
STUDY: X-RAY CHEST REASON FOR EXAM: Male, 63 years old patient with cough and dyspnea. TECHNIQUE: PA and lateral views of the chest. COMPARISON: December 15, 2005. FINDINGS: The lungs are clear and expanded. There is no demonstrated pleural abnormality. Normal size heart. Normal mediastinum and betty. Normal visualized pulmonary arteries. Normal visualized aortic arch and descending thoracic aorta. Normal visualized thoracic spine. Normal visualized ribs, clavicles, and shoulders. There is no demonstrated abnormality of the visualized soft tissue structures of the upper abdomen. RAD/Chest PA and Lateral IMPRESSION: No radiographic evidence of acute cardiopulmonary disease. Electronically Signed: Rashmi Pineda MD at 0:56 EDT ,
[2024-04-07 01:15] VITALS: BP 99/67; PULSE 87; RESP 16; TEMP 36.7; O2SAT 100
== END 2024-04-07 01:16 | disposition home or self-care (01) ==
PROVIDERS: Emergency Provider Emergency Medicine; PCP Family Medicine; Visit Provider Emergency Medicine
DX: U07.1 COVID-19 (principal); E11.9 Type 2 diabetes mellitus without complications; I10 Essential (primary) hypertension; E78.00 Pure hypercholesterolemia, unspecified; K21.9 Gastro-esophageal reflux disease without esophagitis; J45.909 Unspecified asthma, uncomplicated; H91.90 Unspecified hearing loss, unspecified ear; M17.12 Unilateral primary osteoarthritis, left knee; Z79.51 Long term (current) use of inhaled steroids; Z79.899 Other long term (current) drug therapy; Z79.84 Long term (current) use of oral hypoglycemic drugs; Z79.82 Long term (current) use of aspirin
CPT/HCPCS: 71046; 87631; 99282